=== PATIENT | female | born 1955 | race Caucasian/White ===

== ENCOUNTER 2016-12-24 12:04 | Day surgery (SDC) | payer OTHER ==
[~2016-12-24] VITALS: Ht 177.8 cm; Wt 82.5 kg
[2016-12-24 12:58] VITALS: Ht 177.8 cm; Wt 82.5 kg
[2016-12-24] MEDS ORDERED: BENA20TA48 PO (13:03)
[2016-12-24] MEDS ORDERED: ATOR10TA65 PO (13:03)
[2016-12-24] MEDS ORDERED: FLUO40CA10 PO (13:03)
[2016-12-24] MEDS ORDERED: SITA1TAB PO (13:03)
[2016-12-24 13:46] VITALS: BP 171/92; PULSE 58; RESP 15
--- NOTE | 2016-12-24 14:02 | OPPN ---
Date/Time of Note Date/Time of Note DATE: 12/24/16 TIME: 14:00 Patient was advised to resume all her medications Operative Report Preoperative Diagnosis Screening colonoscopy Postoperative Diagnosis Diverticulosis internal hemorrhoids grade 2 otherwise normal Operation/Procedure Performed Colonoscopy Surgeon see signature line anatomic pathology assistant None Anesthesia: moderate sedation (Versed 3 mg internal 50 mcg total time for moderate sedation 18 minute) Estimated blood loss: none Transfusion Required none Specimen None Grafts/Implants none Complications none DAVEY HARRIS MD Dec 24, 2016 14:02
[2016-12-24] MEDS ORDERED: FENTAnyl 50 MCG/ML VIAL ONE (14:04)
[2016-12-24] MEDS ORDERED: MIDAZOLAM 1 MG/ML 2 ML INJ ONE ×2 (14:05)
[2016-12-24] MEDS ORDERED: INSULIN REGULAR, HUMAN 100 UNIT/1 ML 3ML VIAL SC ONE (14:30)
--- NOTE | 2016-12-27 11:49 | GILP ---
DATE OF PROCEDURE: 12/24/2016 PREOPERATIVE DIAGNOSIS: Screening colonoscopy. POSTOPERATIVE DIAGNOSIS: Diverticulosis, internal hemorrhoids grade II, otherwise normal. After obtaining informed consent, the patient was sedated, monitored on oximetry, EKG, blood pressur e. Moderate sedation given 3 mg IV Versed, 50 mcg of fentanyl and total moderate sedation time 18 minut es. Advanced an Olympus video colonoscope all the way to cecum. Somewhat poor prep in the right colon, but diverticulosis noted throughout the colonoscopy, but scattered small ones and internal hemorrhoi ds grade II noted. The rest of the colon, otherwise unremarkable except for the right colon and med iocre prep. Postop, patient had no complication. Plan will be to advise patient to go on high fibe r diet. Repeat colonoscopy in 5 years and follow up with the primary MD. Dictated By: DAVEY IGLESIAS Conf#: [id number] DID#: [id number] CC: DAVEY HARRIS M.D.;*EndCC*
== END 2016-12-24 15:30 | disposition home or self-care (01) ==
LOC: GIL 12:04
PROVIDERS: ATTEND Internal Medicine
DX: Z12.11 Encounter for screening for malignant neoplasm of colon (principal); K57.90 Diverticulosis of intestine, part unspecified, without perforation or abscess without bleeding; K64.4 Residual hemorrhoidal skin tags; E11.9 Type 2 diabetes mellitus without complications
CPT/HCPCS: 45378; 82962; J1815; J2250; J3010; Z7610